=== PATIENT | female | born 1975 | race Caucasian/White ===

== ENCOUNTER → 2016-11-09 | Outpatient (CLI) | payer BC ==
[~2016-11-09] MED LIST: OMEP20CA9 OR
--- NOTE | 2016-11-09 12:46 | DIAGNOSTIC IMAGING REPORT ---
LEFT NECK ULTRASONOGRAPHY CLINICAL HISTORY: LEFT NECK SWELLING COMPARISON STUDY: No previous studies for comparison. FINDINGS: Ultrasonographic evaluation the left neck reveals no pathologic masses and no abnormal fluid collections. IMPRESSION: No pathologic left neck masses identified. Clinical follow-up is advocated Electronically signed by: Ector Hernandez M.D. 11/09/2016 12:45 PM Dictated Date/Time: 11/09/2016 12:44 PM
== END | disposition home or self-care (01) ==
LOC: C.ULTR 12:04
PROVIDERS: ATTEND Family Medicine
DX: R21 Rash and other nonspecific skin eruption (principal)

== ENCOUNTER → 2017-05-04 | Outpatient (CLI) | payer BC ==
--- NOTE | 2017-05-04 16:03 | DIAGNOSTIC IMAGING REPORT ---
MRI OF THE CERVICAL SPINE WITHOUT IV CONTRAST CLINICAL HISTORY: Right hand numbness. COMPARISON STUDY: No priors. TECHNIQUE: MRI of the cervical spine is performed utilizing various T1 and T2-weighted sequences in the axial and sagittal planes. IV contrast was not administered for this examination. FINDINGS: Cervical spine: Vertebral body height and alignment are maintained throughout the cervical spine. Normal marrow signal intensity is preserved throughout the visualized bony structures. There is straightening of the cervical lordosis with mild reversal centered at C4-C5. The atlantodental articulation appears maintained. The spinous processes are intact. No destructive bony lesion is seen. Mild degenerative endplate edema is seen at C3-C4, C4-C5, and C5-C6. Intervertebral discs: Degenerative disc desiccation and loss of height are seen throughout the cervical spine. Loss of height is mild to moderate from C3-C4 through C6-C7. Spinal cord: The cervical spinal cord is normal in morphology and signal intensity. C2-C3: Unremarkable. C3-C4: A posterior disc-osteophyte complex effaces the ventral subarachnoid space. Facet arthropathy is of no consequence. The neural foramina are patent. C4-C5: A posterior disc-osteophyte complex abuts the ventral cord. Predominantly uncovertebral arthropathy causes moderate to severe bilateral neural foraminal stenosis. C5-C6: A posterior disc-osteophyte complex abuts the ventral cord. Uncovertebral and facet arthropathy causes moderate right and mild to moderate left neural foraminal stenosis. C6-C7: A posterior disc-osteophyte complex effaces the ventral subarachnoid space. Predominantly uncovertebral arthropathy causes moderate to severe left and moderate right neural foraminal stenosis. C7-T1: Unremarkable. Soft tissues: The prevertebral and paraspinous soft tissues are within normal limits. Brain parenchyma: Partially imaged brain parenchyma at the skull base is normal in appearance. There is cerebellar tonsillar ectopia. The cerebellar tonsils project 6 mm below the foramen magnum. IMPRESSION: 1. Multilevel cervical spondylosis with mild multilevel acquired compromise of the central canal. See discussion for detailed biglh-[id number] analysis. 2. The cervical spinal cord is normal in morphology and signal intensity. 3. Cerebellar tonsillar ectopia is noted. Dictated: 05/04/2017 3:51 PM Transcribed: 05/04/2017 4:02 PM [email or web address] Electronically signed by: Sage Amezquita M.D. 05/04/2017 4:03 PM Dictated Date/Time: 05/04/2017 3:51 PM
== END | disposition home or self-care (01) ==
LOC: C.MRI 15:01
PROVIDERS: ATTEND Family Medicine
DX: R20.0 Anesthesia of skin (principal); M47.812 Spondylosis without myelopathy or radiculopathy, cervical region; M48.02 Spinal stenosis, cervical region